=== PATIENT | male | born 1975 | race Caucasian/White ===

== ENCOUNTER 2024-04-09 11:36 | Inpatient (IN) | payer BC ==
[~2024-04-09] VITALS: Ht 185.4 cm; Wt 89.0 kg
[2024-04-09] VITALS (11 sets, daily range): BP systolic 129–157; BP diastolic 78–99
[2024-04-09] MEDS ORDERED: NS 1,000 ML IV SCH ×2 (13:50→17:30)
[2024-04-09] MEDS ORDERED: HYDROmorphone HCl/Pf 1MG SYR IV PRN (13:55)
[2024-04-09] MEDS ORDERED: Pantoprazole Sodium 40 MG Injection IV SCH (14:00)
[2024-04-09] MEDS ORDERED: Ondansetron HCl 2 MG / ML 2ML Vial IV PRN (14:45)
[2024-04-09] MEDS ORDERED: Bupivacaine 0.5% HCl 5 MG/ML 30MLVIAL ONE (15:46)
[2024-04-09] MEDS ORDERED: Lactated Ringer's 1,000 ML IV SCH (16:00)
[2024-04-09] MEDS ORDERED: CeFAZolin Sodium 1,000 MG in NS 50 ML IV SCH (16:00)
[2024-04-09] MEDS ORDERED: Ondansetron HCl 2 MG / ML 2ML Vial ONE (16:09)
[2024-04-09] MEDS ORDERED: Rocuronium Bromide 10 MG/ML 5ML Injection IV ONE (16:09)
[2024-04-09] MEDS ORDERED: Dexamethasone Sod Phos 10 MG/ML 1ML VIAL ONE (16:09)
[2024-04-09] MEDS ORDERED: Midazolam HCl 1MG / ML 2ML Vial IV ONE (16:10)
[2024-04-09] MEDS ORDERED: SuccINYLCHOLINE Chloride 100 MG/5 ML 5MLSYR ONE (16:10)
[2024-04-09] MEDS ORDERED: FentaNYL Citrate 50 MCG/ML 2 ML Injection ONE (16:10)
[2024-04-09] MEDS ORDERED: propofoL 20 ML IV ONE (16:10)
[2024-04-09] MEDS ORDERED: CeFAZolin Sodium 2,000 MG in NS 100 ML IV SCH (16:15)
[2024-04-09] MEDS ORDERED: Oxymetazoline 0.05% Nasal Relief Spray 15mL BTL ONE (16:22)
[2024-04-09] MEDS ORDERED: Lidocaine 2% Jelly Uro-Jet ONE (16:23)
--- NOTE | 2024-04-09 16:39 | NUR ---
Pt admitted from [facility] at 1305, VSS, A-Ox4, denies SOB, states 10 out of 10 pain that was well managed with prn dilaudid, ambulates independently, on RA. Lungs clear, heart regular, bowel sounds hypoactive, abdomen tender and firm, skin intact. Pt NPO, went to OR, to be transfer to surgery floor, report to be given.
[2024-04-09] MEDS ORDERED: Sugammadex Sodium 200 MG/2ML SDV (100 MG/ML) ONE (17:23)
--- NOTE | 2024-04-09 18:20 | NUR ---
POST OP ARRIVAL TO SURGICAL UNIT ALERT, ORIENTED, PLEASANT. ARRIVES IN HOSPITAL BED. ABD SOFT w/ LAP SITES x 3 COVERED w/ WOUND GLUE. NO DRNG NOTED. NGT TO LIS. LUNGS CLEAR ON RA. DENIES N/V. REPORTS PAIN SIGNIFICANTLY IMPROVED.
[2024-04-10 00:07] VITALS: BP 142/80
[2024-04-10] MEDS ORDERED: Phenol/Sodium Phenolate Oral Spray 180 ML MM PRN (02:15)
[2024-04-10 03:58] VITALS: BP 134/82
--- NOTE | 2024-04-10 04:59 | NUR ---
SHIFT SUMMARY JUWAN WAS ALERT AND FULLY ORIENTED WITH VISITORS AT START OF SHIFT. PT IN GOOD MOOD, WITH VERY MINIMAL PAIN, PT STATES THAT SORE THROAT FROM SURGERY AND NG TUBE IS THE ONLY THING BOTHERING HIM. LAP SITES ARE BATSHEVA, INTACT AND DRY. NO NEGATIVE CHANGES TO PT CONDITION. PT MENTATION BASELINE, ABLE TO VOID SPONTANEOUSLY. PT RESTING IN BED AT LOW POSITION WITH CALL LIGHT IN REACH.
[2024-04-10 07:29] VITALS: BP 137/88
[2024-04-10 14:34] VITALS: BP 154/94
--- NOTE | 2024-04-10 14:39 | NUR ---
NG tube D/C per doctors orders. Pt tolerated removal well. Advanced to clear liquid diet. Educated pt to ease into intake of food. Pt verbalized understanding.
[2024-04-10] MEDS ORDERED: Ibuprofen 600 MG Tab PO PRN (14:45)
[2024-04-10] MEDS ORDERED: HYDROcodone 5-APAP 325 TAB PO PRN (14:45)
[2024-04-10] MEDS ORDERED: HYDROmorphone HCl/Pf 1MG SYR IV PRN (14:50)
--- NOTE | 2024-04-10 17:28 | NUR ---
Shift Summary: POD 1 Lysis Adhesion. NG tube removed this afternoon. Eating full liquids, drinking, and voiding without issues. Lap sites x3 closed with wound glue, C/D/I. Denies pain at this time. Denies n/v.
[2024-04-10 18:55] VITALS: BP 136/76
[2024-04-11 04:41] VITALS: BP 117/76
--- NOTE | 2024-04-11 06:04 | NUR ---
SHIFT SUMMARY POD 2 SHAREE. NO ACUTE CHANGES OVERNIGHT. VSS. TOLERATING FULL LIQUID DIET. IND IN ROOM. VOIDING, PASSING FLATUS. 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 PT REPORTS PAIN TOLERABLE. ANTICIPATED DISCHARGE LATER TODAY. CALL LIGHT IN REACH, BED IN LOWEST POSITION, WILL REPORT TO DAY RN.
[2024-04-11 07:22] VITALS: BP 119/71
[2024-04-11] MEDS ORDERED: IBUP600 PO (09:07)
[2024-04-11 10:05] VITALS: BP 126/79
--- NOTE | 2024-04-11 10:06 | NUR ---
DISCHARGE: PACKET PRINTED AND PT EDUCATED. IV'S DC'D WNL, TIPS INTACT. VSS. PT LEFT UNIT VIA WHEELCHAIR WITH FAMILY AT 1005
== END 2024-04-11 10:05 | disposition home or self-care (01) | DRG 337 ==
LOC: MEDS 11:36 → SURS 12:58 → MEDS 12:58 → SURS 17:51
PROVIDERS: Surgery; ADMIT Internal Medicine
PROC: 0DNU4ZZ Release Omentum, Percutaneous Endoscopic Approach (ICD-10-PCS; principal; 2024-04-09 13:00)
DX: K56.50 Intestinal adhesions [bands], unspecified as to partial versus complete obstruction (principal); K56.2 Volvulus; K66.8 Other specified disorders of peritoneum; D72.829 Elevated white blood cell count, unspecified
CPT/HCPCS: 74022; 80053; 83690; 85025; A9270; J0330; J0690; J1100; J1170; J2250; J2405; J2470; J2704; J3010; J7030; J7120

== ENCOUNTER → 2024-04-09 | Outpatient (CLI) | payer BC ==
[~2024-04-09] MED LIST: IBUP600 PO
[2024-04-09 08:14] LABS: Albumin, Blood 4.1 g/dL (3.4-5.0); Albumin/Globulin Ratio 1.2 (0.8-1.8); Bilirubin, Total 0.7 mg/dL (0.1-1.0); Bun/Creatinine Ratio 10.5 (12.0-20.0); Calcium, Blood 9.4 mg/dL (8.5-10.1); Creatinine, Blood 0.95 mg/dL (0.60-1.20); Globulin, Blood 3.5 g/dL (2.2-4.0); Potassium, Blood 4.1 mmol/L (3.5-5.5); Total Protein, Blood 7.6 g/dL (6.4-8.2)
[2024-04-09 09:10] LABS: BASOPHILS ABSOLUTE AUTO 0.05 K/mm3 (0.00-0.23); BASOPHILS PERCENT AUTO 0 % (0-2); EOSINOPHILS PERCENT AUTO 0 % (0-6); Hematocrit 43.6 % (37.0-53.0); IMMATURE GRAN ABSOLUTE AUTO 0.01 K/mm3 (0.00-0.10); IMMATURE GRAN PERCENT AUTO 0 % (0-1); LYMPHOCYTES PERCENT AUTO 8 % (21-46); MONOCYTES ABSOLUTE AUTO 0.76 K/mm3 (0.16-1.47); MONOCYTES PERCENT AUTO 6 % (4-13); Mean Corpuscular HGB 31.3 pg (26.0-34.0); Mean Corpuscular HGB Conc 34.4 g/dL (31.5-36.5); Mean Corpuscular Volume 91 fL (80-100); Mean Platelet Volume 11.7 fL (9.1-12.4); NEUTROPHILS ABSOLUTE AUTO 10.02 K/mm3 (1.96-9.15); NEUTROPHILS PERCENT AUTO 85 % (41-73); Platelet Count 231 K/mm3 (150-400); RDW Standard Deviation 40.4 fL (35.1-46.3); Red Blood Cell Count 4.79 M/mm3 (4.30-5.90); White Blood Cell Count 11.84 K/mm3 (4.00-11.30)
== END | disposition home or self-care (01) ==
LOC: LAB SHORT 07:57 → LAB 07:57
PROVIDERS: Physician Assistant
DX: R10.9 Unspecified abdominal pain (principal)
CPT/HCPCS: 80053; 83690; 85025